=== PATIENT | female | born 1980 | race Caucasian/White ===

== ENCOUNTER 2016-08-23 14:40 | Emergency (ER) | payer MEDICAID ==
[2016-08-23] MEDS ORDERED: SODIUM CHLORIDE 0.9% 100 ML IV ONE (15:51)
[2016-08-23] MEDS ORDERED: PROMETHAZINE 25 MG/ML VIAL ONE (15:51)
[2016-08-23] MEDS ORDERED: SODIUM CHLORIDE 0.9% 1,000 ML ONE ×2 (15:51→17:06)
[2016-08-23] MEDS ORDERED: PANTOPRAZOLE 40 MG VIAL IV ONE (15:51)
[2016-08-23] MEDS ORDERED: SUCRALFATE 1 GM TAB PO ONE (17:00)
== END 2016-08-23 17:43 | disposition home or self-care (01) ==
LOC: ER 14:40
DX: R42 Dizziness and giddiness (principal); K29.00 Acute gastritis without bleeding; K20.9 Esophagitis, unspecified; F17.200 Nicotine dependence, unspecified, uncomplicated; Z79.82 Long term (current) use of aspirin; Z86.73 Personal history of transient ischemic attack (TIA), and cerebral infarction without residual deficits
CPT/HCPCS: 36415; 80053; 81001; 81003; 83690; 85025; 86677; 87088; 96361; 96365; 96375